=== PATIENT | male | born 1950 | race Caucasian/White ===

== ENCOUNTER 2017-03-06 19:21 | Inpatient (IN) | payer MEDICARE, BC, OTHER ==
[~2017-03-06] VITALS: Ht 172.7 cm; Wt 91.0 kg
[2017-03-06 19:25] VITALS: BP 126/80; PULSE 124; RESP 30; TEMP 99.1; O2SAT 92
--- NOTE | 2017-03-06 19:45 | PD ---
Physical Exam Date Seen by Provider: Mar 06, 2017 Time Seen by Provider: 19:42 Data Data Last Documented VS Vital Signs Date Time Temp Pulse Resp B/P Pulse Ox O2 Delivery O2 Flow Rate FiO2 03/06/17 19:25 99.1 124 30 126/[address] [facility] Supervised Visit with LOPEZ: No Narrative Course 67 YO M with complaint of 9/10 right sided flank pain and SOB. Pain onset sharply during coughing fit overnight. Cold symptoms x 2 weeks. Vitals reviewed. Patient seen in triage, awaiting priority bed placement. Sylvia Valenzuela Mar 06, 2017 19:45
[2017-03-06 20:00] VITALS: BP 149/90; PULSE 108; RESP 20; O2SAT 90
[2017-03-06] MEDS ORDERED: SODIUM CHLORID 0.9% 500 ML INJ 500 ML IV ONE ×2 (20:00→22:30)
[2017-03-06] MEDS ORDERED: cefTRIAXone INJ 1,000 MG in SODIUM CHLORIDE 0.9% INJ 100 ML IV ONE (20:00)
[2017-03-06] MEDS ORDERED: SODIUM CHLORIDE 0.9% FLUSH 10 ML FLUSH IVF PRN (20:00)
[2017-03-06] MEDS ORDERED: AZITHROMYCIN INJ 500 MG in SODIUM CHLOR 0.9% 250 ML INJ 250 ML IV ONE (20:00)
[2017-03-06] MEDS ORDERED: KETOROLAC TROMETHAMINE 30 MG/ML (IVP) VIAL IV PUSH ONE (20:15)
[2017-03-06 20:21] LABS: BASOPHIL # 0.1 TH/MM3 (0-0.2); BASOPHIL % 0.3 % (0.0-2.0); EOSINOPHIL # 0.1 TH/MM3 (0-0.4); EOSINOPHIL % 0.6 % (0.0-4.0); HEMATOCRIT 50.5 % (39.0-51.0); HEMO FLAGS DIFF FINAL; LYMPH % 9.8 % (9.0-44.0); LYMPHOCYTE # 1.9 TH/MM3 (1.0-4.8); MEAN CELL VOLUME 86.5 FL (80.0-100.0); MEAN CORPUSCULAR HEMOGLOBIN 29.7 PG (27.0-34.0); MEAN CORPUSCULAR HGB CONC 34.4 % (32.0-36.0); MONO % 7.2 % (0.0-8.0); NEUT % 82.1 % (16.0-70.0); PLATELET COUNT 254 TH/MM3 (150-450); RED BLOOD COUNT 5.84 MIL/MM3 (4.50-5.90); WHITE BLOOD COUNT 19.5 TH/MM3 (4.0-11.0)
[2017-03-06 20:23] VITALS: RESP 18; O2SAT 97
--- NOTE | 2017-03-06 20:28 | PD ---
HPI Chief Complaint: Respiratory Symptoms Time Seen by Provider: 19:51 Travel History International Travel<30 days: No Contact w/Intl Traveler<30days: No Traveled to known affect area: No History of Present Illness HPI The patient is a 67 year old male who presents to the [facility] emergency department with a history of cough, congestion that he reports began approximately 2 weeks ago. He reports that 2 nights ago he developed increased cough and congestion and while vigorously coughing he felt a pop in the right side of his back. He reports that since then he's had sharp pains with any movement, coughing, or taking a deep breath. The patient reports having diaphoresis, clamminess associated with this. He reports that his cough is not productive. He denies having any history of respiratory disease. He reports that he did smoke previously, however he quit in his 40s. The patient denies having any chest pain. He reports that he does have shortness of breath with exertion. He denies having any known fevers. On review of systems, the patient denies any neck pain, chest pain, abdominal pain, vomiting, diarrhea, urinary symptoms, or neurologic symptoms. [facility] Past Medical History Narrative Medical The patient's past medical history is significant for hypertension, hyperlipidemia, post traumatic stress disorder, diabetes mellitus that he reports is dietary controlled. High Cholesterol: Yes Diabetes: Yes Patient Takes Glucophage: No Diminished Hearing: No GERD: Yes Hypertension: Yes Medical other: Yes (PTSD) Tetanus Vaccination: Unknown Influenza Vaccination: No Past Surgical History Narrative Surgical The patient's past surgical history is significant for a bilateral inguinal hernia repair. Other Surgery: Yes (BILATERAL HERNIA) Social History Alcohol Use: Yes (OCCASSIONALLY) Tobacco Use: No Substance Use: No Allergies-Medications (Allergen,Severity, Reaction): Coded Allergies: Oxycodone (Verified Allergy, Severe, 03/06/17) Uncoded Allergies: MOTH BALLS (Adverse Reaction, Severe, Rash, 03/06/17) Reported Meds & Prescriptions Reported Meds & Active Scripts Active Reported Vitamin D (Cholecalciferol) 1,000 Unit Tab 1,000 Units PO DAILY Aspir-81 (Aspirin) 81 Mg Tabdr Tamsulosin (Tamsulosin HCl) 0.4 Mg Cap 0.4 Mg PO HS Simvastatin 20 Mg Tab 20 Mg PO HS Lisinopril 40 Mg Tab 40 Mg PO DAILY Omeprazole 20 Mg Tab 20 Mg PO DAILY Sertraline (Sertraline HCl) 50 Mg Tab 50 Mg PO DAILY Review of Systems Except as stated in HPI: all other systems reviewed are Neg General / Constitutional: No: Fever Eyes: No: Visual changes HENT: No: Headaches Cardiovascular: Positive: Chest Pain or Discomfort (right posterior upper thoracic) Respiratory: Positive: Cough, Shortness of Breath Gastrointestinal: No: Abdominal Pain Genitourinary: No: Dysuria Musculoskeletal: No: Pain Skin: No Rash Neurologic: No: Weakness Psychiatric: No: Depression Endocrine: No: Polydipsia Hematologic/Lymphatic: No: Easy Bruising Physical Exam Narrative General: The patient is a well-developed well-nourished male, uncomfortable appearing on arrival, diaphoretic Head and Neck exam: Head is normocephalic atraumatic. Eyes: EOMI, pupils are equal round and reactive to light. Nose: Midline septum with pink mucous membranes Mouth: Dentition unremarkable. Moist mucus membranes. Posterior oropharynx is not erythematous. No tonsillar hypertrophy. Uvula midline. Airway patent. Neck: No palpable lymphadenopathy. No nuchal rigidity. No thyromegaly. Cardiovascular: Sinus tachycardia in the 1 teens without murmurs, gallops, or rubs. No pulse deficit to the extremities and simultaneous auscultation and palpation of his radial artery. Lungs: Decreased breath sounds in the right side, right lung base, no wheezes, no rhonchi. No crackles audible. The patient has exquisite tenderness on palpation along the right posterior thorax, however there is no ecchymosis or erythema. No flail segment. Step-off or crepitus. Abdomen: Soft, without tenderness to palpation in all 4 quadrants of the abdomen. No guarding, rebound, or rigidity. Normal bowel sounds are audible. No tenderness on palpation of McBurney's point. Extremities: No clubbing, cyanosis, or edema. 2+ pulses in all 4 extremities. No calf tenderness on palpation. Back: No spinous process tenderness to palpation. The patient has right-sided CVA tenderness on palpation. Neurologic Exam: Grossly nonfocal. Skin Exam: No rash noted. Intact skin that is warm and diaphoretic. Data Data Last Documented VS Vital Signs Date Time Temp Pulse Resp B/P Pulse Ox O2 Delivery O2 Flow Rate FiO2 7/10/22 20:23 18 97 Nasal Cannula 2 03/06/17 20:00 108 149/90 03/06/17 19:25 99.1 Orders Complete Blood Count With Diff (03/06/17 19:51) Comprehensive Metabolic Panel (03/06/17 19:51) B-Type Natriuretic Peptide (03/06/17 19:51) Act Partial Throm Time (Ptt) (03/06/17:51) Prothrombin Time / Inr (Pt) (03/06/17 19:51) Magnesium (Mg) (03/06/17 19:51) Ckmb (Isoenzyme) Profile (03/06/17 19:51) Troponin I (03/06/17:51) Urinalysis - C+S If Indicated (03/06/17:51) Blood Culture (03/06/17 19:51) Iv Access Insert/Monitor (03/06/17:51) Electrocardiogram (03/06/17:51) Ecg Monitoring (03/06/17:51) Oximetry (03/06/17:51) Oxygen Administration (03/06/17 19:51) Chest, Single Ap (03/06/17 19:51) Sodium Chloride 0.9% Flush (Ns Flush) (03/06/17 20:00) Lactic Acid Sepsis Protocol (03/06/17 19:51) Ct Pulmonary Angiogram (03/06/17 20:00) Sodium Chlorid 0.9% 500 Ml Inj (Ns 500 M (03/06/17 20:00) Ceftriaxone Inj (Rocephin Inj) (03/06/17 20:00) Azithromycin Inj (Zithromax Inj) (03/06/17 20:00) Ketorolac Inj (Toradol Inj) (03/06/17 20:15) CKMB (03/06/17 20:03) CKMB% (03/06/17 20:03) Iodixanol 320 Inj (Rad Ct) (Visipaque 32 (03/06/17 22:20) Sodium Chlor 0.9% 1000 Ml Inj (Ns 1000 M (03/06/17 22:30) Sodium Chlor 0.9% 250 Ml Inj (Ns 250 Ml (03/06/17 22:30) Sodium Chlorid 0.9% 500 Ml Inj (Ns 500 M (03/06/17 22:30) Admit Order (Ed Use Only) (03/06/17 22:45) Labs Laboratory Tests Test 03/06/17 03/06/17 20:03 22:39 Prothrombin Time 10.9 SEC Prothromb Time International 1.0 RATIO Ratio Activated Partial 30.1 SEC Thromboplast Time Sodium Level 136 MEQ/L Potassium Level 4.2 MEQ/L Chloride Level 101 MEQ/L Carbon Dioxide Level 26.2 MEQ/L Anion Gap 9 MEQ/L Blood Urea Nitrogen 17 MG/DL Creatinine 1.60 MG/DL Estimat Glomerular Filtration 43 ML/MIN Rate Random Glucose 134 MG/DL Lactic Acid Level 2.3 mmol/L 1.6 mmol/L Calcium Level 9.3 MG/DL Magnesium Level 1.9 MG/DL Total Bilirubin 0.8 MG/DL Aspartate Amino Transf 20 U/L (AST/SGOT) Alanine Aminotransferase 33 U/L (ALT/SGPT) Alkaline Phosphatase 140 U/L Total Creatine Kinase 159 U/L Creatine Kinase MB LESS THAN 0.5 NG/ML Troponin I LESS THAN 0.02 NG/ML B-Type Natriuretic Peptide 6 PG/ML Total Protein 8.8 GM/DL Albumin 4.3 GM/DL White Blood Count 19.5 TH/MM3 Red Blood Count 5.84 MIL/MM3 Hemoglobin 17.4 GM/DL Hematocrit 50.5 % Mean Corpuscular Volume 86.5 FL Mean Corpuscular Hemoglobin 29.7 PG Mean Corpuscular Hemoglobin 34.4 % Concent Red Cell Distribution Width 14.0 % Platelet Count 254 TH/MM3 Mean Platelet Volume 8.4 FL Neutrophils (%) (Auto) 82.1 % Lymphocytes (%) (Auto) 9.8 % Monocytes (%) (Auto) 7.2 % Eosinophils (%) (Auto) 0.6 % Basophils (%) (Auto) 0.3 % Neutrophils # (Auto) 16.0 TH/MM3 Lymphocytes # (Auto) 1.9 TH/MM3 Monocytes # (Auto) 1.4 TH/MM3 Eosinophils # (Auto) 0.1 TH/MM3 Basophils # (Auto) 0.1 TH/MM3 CBC Comment DIFF FINAL Differential Comment MDM Medical Decision Making Medical Screen Exam Complete: Yes Emergency Medical Condition: Yes Medical Record Reviewed: Yes Interpretation(s) Last Impressions CT Angiography 03/06/171999 Signed Impressions: Service Date/Time: Monday, March 06, 2017 22:15 - CONCLUSION: 1. Pulmonary embolus seen in the pulmonary artery supplying the posterior medial right lower lobe. 2. Mild suspected atelectasis or consolidation at the bases. Marcel Morfin MD Chest X-Ray 03/06/171950 Signed Impressions: Service Date/Time: Monday, March 06, 2017 20:31 - CONCLUSION: Mild right base atelectasis or consolidation. Marcel Morfin MD Differential Diagnosis Pneumonia, versus pulmonary embolism, versus pneumothorax, versus rib fracture, versus pleural effusion Narrative Course During the course of the patients emergency department visit, the patients history, examination, and differential diagnosis were reviewed with the patient. The patient had IV access obtained and blood work sent for analysis. The patient was placed on a surveillance monitor with oximetry and blood pressure monitoring. An ECG was done on arrival. The patient's ECG reveals a sinus tachycardia rate of 111, QRS 81 ms, QTC 374 ms, no acute ST segment elevation or depression. The patient was initially provided normal saline a 500 mL bolus 1, Rocephin 1 g IV, Zithromax 500 IV, Toradol 15 mg IV for pain. The patients laboratory studies were reviewed and remarkable for a white count of 19.5, hemoglobin 17.4, platelets 254 with 82.1 neutrophils. Sedimentation rate is 47, CMP is remarkable for creatinine 1.60, glucose 134, alkaline phosphatase 140, CPK 159, troponin I less than 0.02, PT 10.9, PTT 30.1, urinalysis shows 30 protein otherwise moderate leukocyte esterase, 9 wbc's, rare bacteria, culture indicated. Radiology studies were reviewed and remarkable for a chest x-ray that showed a mild right base atelectasis versus consolidation and given the patient's history antibiotic was started. CTA to rule out PE reveals a pulmonary embolism seen in the pulmonary artery supplying the posterior medial right lower lobe, mild suspected atelectasis or consolidation at the bases. The patient was started on heparin per PE protocol. The patients results were discussed with the patient, including the plan of care. I explained that further testing and/ or monitoring is indicated based on the patients history, examination, and/ or laboratory findings. Therefore, I recommended admission for additional evaluation. The patient expressed understanding and was agreeable with this plan. The patient was admitted to the hospital in stable condition and [facility] Sepsis Criteria SIRS Criteria (2 or more): Heart rate over 90, RR > 20 or PaCO2 < 32, WBC > 62925, < 4000 or > 10% bands Sepsis Criteria (SIRS+source): Infect source susp/known Severe Sepsis (+one): Lactate >2 Criteria Outcome: Meets SIRS criteria, Meets sepsis criteria, Meets severe sepsis criteria Physician Communication Physician Communication The patient's case was discussed with Marcel Sol the physician executive personal assistant who did agree to [facility] Diagnosis Primary Impression: Pulmonary embolism Qualified Code: I26.99 - Other acute pulmonary embolism without acute cor pulmonale Additional Impression: Pneumonia Qualified Code: J18.9 - Pneumonia of both lower lobes due to infectious organism Admitting Information Admitting Physician Requests: Admit Bouchra Ocasio MD Mar 06, 2017 20:28
[2017-03-06 20:35] LABS: ANION GAP 9 MEQ/L (5-15); AST (GOT) 20 U/L (15-37); BICARBONATE 26.2 MEQ/L (21.0-32.0); BLOOD UREA NITROGEN 17 MG/DL (7-18); CHLORIDE 101 MEQ/L (98-107); GLOMERULAR FILTRATION RATE 43 ML/MIN (>89); MAGNESIUM 1.9 MG/DL (1.5-2.5); POTASSIUM 4.2 MEQ/L (3.5-5.1); SODIUM (NA) 136 MEQ/L (136-145)
[2017-03-06 20:36] LABS: ALT (GPT) 33 U/L (12-78)
[2017-03-06 20:40] LABS: ALKALINE PHOSPHATASE 140 U/L (45-117); APTT (PATIENT) 30.1 SEC (24.3-30.1); CREATINE KINASE 159 U/L (39-308); PROTHROMBIN TIME - PATIENT 10.9 SEC (9.8-11.6); TOTAL BILIRUBIN ADULT 0.8 MG/DL (0.2-1.0)
[2017-03-06] MEDS ORDERED: TAMS0.4C4 PO (20:48)
[2017-03-06] MEDS ORDERED: VITA100064 PO (20:48)
[2017-03-06] MEDS ORDERED: ASPI81TA81 (20:48)
[2017-03-06] MEDS ORDERED: SIMV20TA PO (20:48)
[2017-03-06] MEDS ORDERED: OMEP20TA PO (20:48)
[2017-03-06] MEDS ORDERED: SERT-132 PO (20:48)
[2017-03-06] MEDS ORDERED: LISI40TA PO (20:48)
[2017-03-06 20:52] LABS: CKMB LESS THAN 0.5 NG/ML (0.5-3.6)
--- NOTE | 2017-03-06 21:22 | RADRPT ---
EXAM DATE/TIME: 03/06/2017 20:31 [facility] COMPARISON: No previous studies available for comparison. INDICATIONS : Short of Breath MEDICAL HISTORY : None. SURGICAL HISTORY : None. ENCOUNTER: Initial ACUITY: 2 days PAIN SCORE: 0/10 LOCATION: Bilateral chest FINDINGS: The heart size is normal. There is increased density at the right base. The left lung is clear. A sig nificant effusion is not seen. CONCLUSION: Mild right base atelectasis or consolidation. Marcel Morfin MD on March 06, 2017 at 21:19 Board Certified Radiologist. This report was verified electronically.
[2017-03-06 22:14] LABS: LACTIC ACID GHOST NOT REPORTABLE
[2017-03-06] MEDS ORDERED: IODIXANOL 320 MG/ML 10 ML VIAL (for Rad CT) IV ONE (22:20)
[2017-03-06] MEDS ORDERED: SODIUM CHLOR 0.9% 1000 ML INJ 1,000 ML IV ONE (22:30)
[2017-03-06] MEDS ORDERED: SODIUM CHLOR 0.9% 250 ML INJ 250 ML IV ONE (22:30)
--- NOTE | 2017-03-06 22:31 | RADRPT ---
EXAM DATE/TIME: 03/06/2017 22:15 [facility] COMPARISON: No previous studies available for comparison. INDICATIONS : Right sided chest pain with shortness of breath. IV CONTRAST: 50 cc Visipaque (iodixanol) IV RADIATION DOSE: 15.48 CTDIvol (mGy) MEDICAL HISTORY : Hypertension. Diabetes mellitus type 2. SURGICAL HISTORY : None. ENCOUNTER: Initial ACUITY: 2 days PAIN SCALE: 4/10 LOCATION: Right chest TECHNIQUE: Volumetric scanning of the chest was performed using a pulmonary embolism protocol MIP images were re constructed. Using automated exposure control and adjustment of the mA and/or kV according to patien t size, radiation dose was kept as low as reasonably achievable to obtain optimal diagnostic quality images. DICOM format image data is available electronically for review and comparison. FINDINGS: PULMONARY ARTERIES: There is pulmonary embolus seen at the posterior medial right lower lobe. LUNGS: There is mild increased density in the posterior lung bases bilaterally. PLEURAE: There is no pleural thickening or pleural effusion. MEDIASTINUM: There is good visualization of the great vessels of the middle mediastinum. No evidence of mediastin al or hilar adenopathy/mass. MUSCULOSKELETAL: Within normal limits for patient age. MISCELLANEOUS: The visualized upper abdominal organs demonstrate no acute abnormality. CONCLUSION: 1. Pulmonary embolus seen in the pulmonary artery supplying the posterior medial right lower lobe. 2. Mild suspected atelectasis or consolidation at the bases. Marcel Morfin MD on March 06, 2017 at 22:26 Board Certified Radiologist. This report was verified electronically.
[2017-03-06] MEDS ORDERED: HEPARIN SODIUM - IV 10,000 UNITS/10 ML VIAL IV ONE (22:45)
[2017-03-06] MEDS ORDERED: HEPARIN-D5W INJ 250 ML IV SCH (22:45)
[2017-03-06] MEDS ORDERED: RESP: ALBUTEROL 2.5 MG/IPRATROPIUM 0.5 MG NEB (PRN) INH (23:00)
[2017-03-06] MEDS ORDERED: ACETAMINOPHEN 325 MG TAB PO PRN (23:00)
[2017-03-06] MEDS ORDERED: ONDANSETRON HCL 4 MG/2 ML VIAL IV PRN (23:00)
[2017-03-06] MEDS ORDERED: guaiFENesin/DEXTROMETHORPHAN 200 MG/20 MG/10 ML CUP PO PRN (23:00)
[2017-03-06 23:08] LABS: HEMATOCRIT 40.1 % (39.0-51.0); MEAN CELL VOLUME 87.1 FL (80.0-100.0); MEAN CORPUSCULAR HEMOGLOBIN 29.1 PG (27.0-34.0); MEAN CORPUSCULAR HGB CONC 33.4 % (32.0-36.0); PLATELET COUNT 172 TH/MM3 (150-450); RED CELL DISTRIBUTION WIDTH 13.9 % (11.6-17.2); REVIEW FLAG FINAL; WHITE BLOOD COUNT 17.1 TH/MM3 (4.0-11.0)
[2017-03-06 23:26] LABS: PROTHROMBIN TIME - PATIENT 11.5 SEC (9.8-11.6)
[2017-03-06 23:28] VITALS: O2SAT 96
[2017-03-06 23:30] VITALS: BP 125/70; PULSE 93; RESP 18; O2SAT 98
[2017-03-07] VITALS (27 sets, daily range): BP systolic 127–147; BP diastolic 79–95; PULSE 83–118; RESP 16–24; TEMP 98.2–98.6; O2SAT 93–98
[2017-03-07] MEDS: SODIUM CHLOR 0.9% 1000 ML INJ 1,000 ML IV SCH ×3 (00:20→15:38)
[2017-03-07] MEDS ORDERED: MORPHINE SULFATE 4 MG/ML INJ IV PRN (01:30)
[2017-03-07] MEDS: MORPHINE SULFATE 4 MG/ML INJ IV PRN ×6 (01:44→23:41)
[2017-03-07 06:27] LABS: APTT (PATIENT) 135.4 SEC (24.3-30.1)
[2017-03-07 07:24] LABS: BICARBONATE 23.2 MEQ/L (21.0-32.0)
--- NOTE | 2017-03-07 08:56 | HHI.HP ---
[facility] Rod Fields MD Admission Diagnosis Pulmonary embolism, pneumonia Diagnoses: Travel History International Travel<30 Days: No Contact w/Intl Traveler <30 Da: No Traveled to Known Affected Are: No History of Present Illness This is a very pleasant 67-year-old male patient of Dr. Fields. The patient has 2 weeks of recurrent cough. He has chronic problem with excessive sweating. For the last 2-3 days been complaining of a pleuritic right posterior chest pain with worsening shortness of breath. No leg pain. He came to the emergency department at [facility] last night around 7:30. His chest x-ray showed right base consolidation and CT of the chest showed right lower pulmonary embolism with consolidation. There is alert and oriented. He feels a little bit better. Denies any recent surgery or travel. No strong family history of thromboembolism. No fever however has been very sweaty and clammy at times. The pain is in the right posterior chest worse on deep inspiration and it appears that it had started suddenly about 2 days ago when he felt something pop in his right posterior chest. He is mildly tachypneic. He is also mildly tachycardic . He was seen this morning by the undersigned in room 246 and the presence of his nurse. Review of Systems Other 10 systems reviewed and otherwise negative Past Family Social History Past Medical History Hypertension Diet-controlled diabetes mellitus PTSD Reflux disease Enlarged prostate Hyperlipidemia Past Surgical History Bilateral inguinal hernia repair Spinal surgery in 1988 Reported Medications Reported Meds & Active Scripts Active Reported Vitamin D (Cholecalciferol) 1,000 Unit Tab 1,000 Units PO DAILY Aspir-81 (Aspirin) 81 Mg Tabdr Tamsulosin (Tamsulosin HCl) 0.4 Mg Cap 0.4 Mg PO HS Simvastatin 20 Mg Tab 20 Mg PO HS Lisinopril 40 Mg Tab 40 Mg PO DAILY Omeprazole 20 Mg Tab 20 Mg PO DAILY Sertraline (Sertraline HCl) 50 Mg Tab 50 Mg PO DAILY Allergies: Coded Allergies: Oxycodone (Verified Allergy, Severe, 03/06/17) Uncoded Allergies: MOTH BALLS (Adverse Reaction, Severe, Rash, 03/06/17) Family History There are several family members with "blood clot". He is not sure about the locations of those blood clots. His father in his 80s and had some form of angioplasty in his neck also have hypertension. His brother who is 3 years ending in him is alive and apparently had some congenital heart disease. Social History Quit smoking over 20 years, occasional taking total of about 3 alcoholic drinks a week Physical Exam Vital Signs Vital Signs Date Time Temp Pulse Resp B/P Pulse Ox O2 Delivery O2 Flow Rate FiO2 03/07/17 08:22 16 03/07/17 06:53 88 03/07/17 05:16 92 03/07/17 04:07 88 03/07/17 03:20 98.5 83 16 127/79 97 03/07/17 03:10 89 03/07/17 02:15 90 03/07/17 01:00 94 03/07/17 00:30 94 03/07/17 00:30 98.3 95 18 138/86 98 03/06/17 23:30 93 18 125/70 98 Nasal Cannula 2 03/06/17 23:28 96 Nasal Cannula 3.00 03/06/17 20:23 18 97 Nasal Cannula 2 03/06/17 20:23 97 Nasal Cannula 2 03/06/17 20:00 108 20 149/90 90 Nasal Cannula 2 03/06/17 19:25 99.1 124 30 126/80 92 Room Air Physical Exam GENERAL: This is a well-nourished, well-developed patient, in no apparent distress. SKIN: No rashes, ecchymoses or lesions. Cool and moist, he had a sweaty back HEAD: Atraumatic. Normocephalic. No temporal or scalp tenderness. EYES: Pupils equal round and reactive. Extraocular motions intact. No scleral icterus. No injection or drainage. ENT: Nose without bleeding, purulent drainage or septal hematoma. Throat without erythema, tonsillar hypertrophy or exudate. Uvula midline. Airway patent. NECK: Trachea midline. No JVD or lymphadenopathy. Supple, nontender, no meningeal signs. CARDIOVASCULAR: Regular rate and rhythm without murmurs, gallops, or rubs. RESPIRATORY: Clear to auscultation. Breath sounds equal bilaterally. No wheezes , rales, or rhonchi. GASTROINTESTINAL: Abdomen soft, non-tender, nondistended. No hepato-splenomegaly , or palpable masses. No guarding. MUSCULOSKELETAL: Extremities without clubbing, cyanosis, or edema. No joint tenderness, effusion, or edema noted. No calf tenderness. Negative Homans sign bilaterally. NEUROLOGICAL: Awake and alert. Cranial nerves II through XII intact. Normal speech. Laboratory Laboratory Tests Test 03/06/17 03/06/17 03/06/17 03/07/17 20:03 22:39 22:59 04:48 White Blood Count 19.5 17.1 Red Blood Count 5.84 4.60 Hemoglobin 17.4 13.4 Hematocrit 50.5 40.1 Mean Corpuscular Volume 86.5 87.1 Mean Corpuscular Hemoglobin 29.7 29.1 Mean Corpuscular Hemoglobin 34.4 33.4 Concent Red Cell Distribution Width 14.0 13.9 Platelet Count 254 172 Mean Platelet Volume 8.4 8.2 Neutrophils (%) (Auto) 82.1 Lymphocytes (%) (Auto) 9.8 Monocytes (%) (Auto) 7.2 Eosinophils (%) (Auto) 0.6 Basophils (%) (Auto) 0.3 Neutrophils # (Auto) 16.0 Lymphocytes # (Auto) 1.9 Monocytes # (Auto) 1.4 Eosinophils # (Auto) 0.1 Basophils # (Auto) 0.1 CBC Comment DIFF FINAL Differential Comment Prothrombin Time 10.9 11.5 Prothromb Time International 1.0 1.0 Ratio Activated Partial 30.1 30.0 135.4 Thromboplast Time Sodium Level 136 140 Potassium Level 4.2 4.0 Chloride Level 101 108 Carbon Dioxide Level 26.2 23.2 Anion Gap 9 9 Blood Urea Nitrogen 17 20 Creatinine 1.60 1.22 Estimat Glomerular Filtration 43 59 Rate Random Glucose 134 102 Lactic Acid Level 2.3 1.6 Calcium Level 9.3 7.7 Magnesium Level 1.9 Total Bilirubin 0.8 Aspartate Amino Transf 20 (AST/SGOT) Alanine Aminotransferase 33 (ALT/SGPT) Alkaline Phosphatase 140 Total Creatine Kinase 159 Creatine Kinase MB LESS THAN 0.5 Troponin I LESS THAN 0.02 B-Type Natriuretic Peptide 6 Total Protein 8.8 Albumin 4.3 Date/Time Procedure Status Source Growth 03/06/17 20:05 Aerobic Blood Culture Received Blood Peripheral Pending 03/06/17 20:05 Anaerobic Blood Culture Received Blood Peripheral Pending Result Diagram: 03/06/17 2259 03/07/17 0448 Imaging Last [address] Angiography 03/06/171999 Signed Impressions: Service Date/Time: Monday, March 06, 2017 22:15 - CONCLUSION: 1. Pulmonary embolus seen in the pulmonary artery supplying the posterior medial right lower lobe. 2. Mild suspected atelectasis or consolidation at the bases. Marcel Morfin MD Chest X-Ray 03/06/171950 Signed Impressions: Service Date/Time: Monday, March 06, 2017 20:31 - CONCLUSION: Mild right base atelectasis or consolidation. Marcel Morfin MD Assessment and Plan Assessment and Plan Assessment Acute pulmonary embolism, this appears to be unprovoked Right base consolidation, cannot rule out pneumonia Leukocytosis Diaphoresis Slightly elevated protein with normal albumin Plan The patient has been admitted to telemetry. He was started on heparin drip This is switched now to Xarelto The patient was informed that he will need at least 6 months of anticoagulation At this is an unprovoked pulmonary embolism, hematology consultation is requested Also has his protein level is high a serum protein electrophoresis is also requested and a manual white count differential Supplemental oxygen is supplied He is to be ambulated today Keep on telemetry DVT prophylaxis is covered with his and coagulation as above Electrocardiogram is also ordered Discussed with patient Discussed with nurse 40 minutes spent Discussed With: Nurse Greg Crooks MD Mar 07, 2017 08:56
[2017-03-07] MEDS ORDERED: FAMOTIDINE 20 MG TAB PO SCH (09:00)
[2017-03-07 09:38] LABS: APTT (PATIENT) 43.2 SEC (24.3-30.1)
[2017-03-07] MEDS: CHOLECALCIFEROL (VIT D3) 1000 UNIT TAB PO SCH (09:44)
[2017-03-07] MEDS: SERTRALINE HCL 50 MG TAB PO SCH (09:44)
[2017-03-07] MEDS: LISINOPRIL 20 MG TAB PO SCH (09:44)
[2017-03-07] MEDS ORDERED: TAMSULOSIN HCL 0.4 MG CAP PO ONE (10:30)
[2017-03-07] MEDS: RIVAROXABAN 15 MG TAB PO SCH ×2 (11:10→20:09)
--- NOTE | 2017-03-07 13:27 | RADRPT ---
EXAM DATE/TIME: 03/07/2017 12:18 [facility] COMPARISON: No previous studies available for comparison. INDICATIONS : Pulmonary embolism. MEDICAL HISTORY : Hypercholesterolemia. Hypertension. Gastroesophageal reflux disease. Syncope. Spinal injury. Arthriti s. Diabetes. PTSD. Anticoagulant therapy, Xarelto. SURGICAL HISTORY : Bilateral hernia. ENCOUNTER: Initial ACUITY: 2 day PAIN SCORE: 0/10 LOCATION: Bilateral leg. TECHNIQUE: Venous ultrasound of the left and right leg was performed from the inguinal ligament to the proximal calf. Real-time, color Doppler and spectral tracing, compression and augmentation techniques were us ed. FINDINGS: RIGHT LEG: There is normal compressibility of the deep venous system from the inguinal region to the proximal ca lf. No echogenic clot is seen in the lumen of the common femoral, femoral, popliteal, and posterior tibial veins. There is a normal response of the venous system to proximal and distal augmentation an d respiration. LEFT LEG: There is normal compressibility of the deep venous system from the inguinal region to the proximal ca lf. No echogenic clot is seen in the lumen of the common femoral, femoral, popliteal, and posterior tibial veins. There is a normal response of the venous system to proximal and distal augmentation an d respiration. CONCLUSION: Negative for deep venous thrombosis. Dagoberto Chen MD FACR on March 07, 2017 at 13:24 Board Certified Radiologist. This report was verified electronically.
--- NOTE | 2017-03-07 14:17 | EKG ---
Date Performed: 03/06/2017 Time Performed: 19:52:22 PTAGE: 67 years EKG: SINUS TACHYCARDIA POSSIBLE LEFT ATRIAL ENLARGEMENT ABNORMAL RHYTHM ECG NO PREVIOUS TRACING DOCTOR: Navarro Hardin Interpretating Date/Time 03/07/2017 14:14:36
[2017-03-07 14:47] LABS: TOTAL PROTEIN SPE 6.4 GM/DL (6.0-7.6)
[2017-03-07 15:34] LABS: APTT (PATIENT) 43.3 SEC (24.3-30.1)
[2017-03-07 16:46] LABS: BACTERIA, URINE RARE /hpf; BLOOD, URINE NEG (NEG); COMMENT (UR) CULTURE INDICATED; CULTURE IF INDICATED CULTURE INDICATED; GLUCOSE,URINE NEG (NEG); KETONE, URINE NEG (NEG); MUCUS URINE FEW /lpf (OCC); NITRITE,URINE NEG (NEG); SQUAMOUS EPITHELIAL CELL URINE 6 /hpf (0-5); URINE COLOR YELLOW (YELLW/STRAW)
[2017-03-07] MEDS: cefTRIAXone INJ 2,000 MG in SODIUM CHLORIDE 0.9% INJ 100 ML IV SCH (20:09)
[2017-03-07] MEDS: PRAVASTATIN SOD 40 MG TAB PO SCH (20:09)
[2017-03-07] MEDS: TAMSULOSIN HCL 0.4 MG CAP PO SCH (20:09)
[2017-03-07] MEDS: AZITHROMYCIN INJ 500 MG in SODIUM CHLOR 0.9% 250 ML INJ 250 ML IV SCH (21:00)
[2017-03-07] MEDS ORDERED: TAMSULOSIN HCL 0.4 MG CAP PO SCH (21:00)
[2017-03-08] VITALS (27 sets, daily range): BP systolic 123–153; BP diastolic 70–89; PULSE 70–118; RESP 18–20; TEMP 98.3–99.4; O2SAT 93–97
[2017-03-08] MEDS: MORPHINE SULFATE 4 MG/ML INJ IV PRN ×2 (03:28→22:38)
[2017-03-08] MEDS: SODIUM CHLOR 0.9% 1000 ML INJ 1,000 ML IV SCH (04:58)
[2017-03-08] MEDS: LISINOPRIL 20 MG TAB PO SCH (09:27)
[2017-03-08] MEDS: TAMSULOSIN HCL 0.4 MG CAP PO SCH ×2 (09:27→20:00)
[2017-03-08] MEDS: CHOLECALCIFEROL (VIT D3) 1000 UNIT TAB PO SCH (09:28)
[2017-03-08] MEDS: PANTOPRAZOLE SOD 20 MG DELAYED RELEASE TAB PO SCH (09:28)
[2017-03-08] MEDS: RIVAROXABAN 15 MG TAB PO SCH ×2 (09:28→19:59)
[2017-03-08] MEDS: SERTRALINE HCL 50 MG TAB PO SCH (09:28)
--- NOTE | 2017-03-08 09:50 | PD.ONC.PN ---
Subjective Subjective Remarks Afebrile overnight. Patient resting in bed in nad. Tolerating xarelto. No bleeding. CP improved. Objective Data Date Time Temp Pulse Resp B/P Pulse Ox O2 Delivery O2 Flow Rate FiO2 03/08/17 06:00 95 03/08/17 05:00 92 03/08/17 04:00 98 03/08/17 04:00 98.6 98 18 142/81 93 03/08/17 03:00 90 03/08/17 02:00 92 03/08/17 01:00 90 03/08/17 00:00 95 03/08/17 00:00 98.3 102 18 153/89 96 03/07/17 23:00 90 03/07/17 22:00 96 03/07/17 21:00 92 03/07/17 20:00 97 03/07/17 20:00 98.6 101 18 132/95 95 03/07/17 19:00 96 03/07/17 18:00 118 03/07/17 17:55 93 Nasal Cannula 2.00 03/07/17 17:00 92 03/07/17 16:00 98.3 110 24 147/86 93 03/07/17 16:00 88 03/07/17 15:52 16 03/07/17 15:00 92 03/07/17 14:00 98 03/07/17 13:36 96 Nasal Cannula 2.00 03/07/17 13:00 106 03/07/17 12:00 98.4 109 16 143/93 93 03/07/17 12:00 105 03/07/17 11:00 106 03/07/17 10:00 104 03/08/17 03/08/17 03/08/17 07:00 15:00 23:00 Intake Total 240 ml Balance 240 ml Result Diagram: 03/06/17 2259 03/07/17 0448 Laboratory Results Laboratory Tests Test 03/07/17 03/07/17 03/07/17 13:05 13:25 15:02 Erythrocyte Sedimentation Rate 47 mm/hr Total Protein 6.4 GM/DL Urine Color YELLOW Urine Turbidity CLEAR Urine pH 6.0 Urine Specific [place] 1.050 Urine Protein 30 mg/dL Urine Glucose (UA) NEG mg/dL Urine Ketones NEG mg/dL Urine Occult Blood NEG Urine Nitrite NEG Urine Bilirubin NEG Urine Urobilinogen LESS THAN 2.0 MG/DL Urine Leukocyte Esterase MOD Urine RBC 3 /hpf Urine WBC 9 /hpf Urine Squamous Epithelial 6 /hpf Cells Urine Bacteria RARE /hpf Urine Mucus FEW /lpf Microscopic Urinalysis Comment CULTURE INDICATED Activated Partial 43.3 SEC Thromboplast Time Culture Results Microbiology Date/Time Procedure Status Source Growth 03/06/17 19:58 Aerobic Blood Culture - Preliminary Resulted Blood Peripheral NO GROWTH IN 1 DAY 03/06/17 19:58 Anaerobic Blood Culture - Preliminary Resulted Blood Peripheral NO GROWTH IN 1 DAY 03/06/17 20:05 Aerobic Blood Culture - Preliminary Resulted Blood Peripheral NO GROWTH IN 1 DAY 03/06/17 20:05 Anaerobic Blood Culture - Preliminary Resulted Blood Peripheral NO GROWTH IN 1 DAY 03/07/17 13:25 Urine Culture Received Urine Random Urine Pending Administered Medications Medications (Trade) Dose Ordered Sig/Dinesh Route PRN Reason Start Time Stop Time Status Last Admin Dose Admin Ceftriaxone Sodium 2000 mg/ Sodium Chloride 100 ml @ 200 mls/hr Q24H IV 03/07/17 20:00 03/07/17 20:09 Azithromycin 500 mg/Sodium Chloride 250 ml @ 250 mls/hr HS IV 03/07/17 21:00 03/07/17 21:00 Sodium Chloride (NS 1000 ml Inj) 1,000 ml @ 100 mls/hr Q10H IV 03/06/17 22:58 03/07/17 15:38 Ondansetron HCl (Zofran Inj) 4 mg Q6H PRN IV NAUSEA 03/06/17 23:00 03/07/17 11:10 Morphine Sulfate (Morphine Inj) 4 mg Q3H PRN IV SEVERE PAIN/PAIN 6-10 03/07/17 01:30 03/08/17 03:28 Cholecalciferol (Vitamin D3) 1,000 units DAILY PO 03/07/17 09:00 03/08/17 09:28 Sertraline HCl (Zoloft) 50 mg DAILY PO 03/07/17 09:00 03/08/17 09:28 Lisinopril (Prinivil) 40 mg DAILY PO 03/07/17 09:15 03/08/17 09:27 Pantoprazole Sodium (Protonix) 20 mg DAILY PO 03/08/17 09:00 03/08/17 09:28 Pravastatin Sodium (Pravachol) 40 mg HS PO 03/07/17 21:00 7/3/17 20:09 Tamsulosin HCl (Flomax) 0.4 mg BID PO 03/07/17 21:00 03/08/17 09:27 Rivaroxaban (Xarelto) 15 mg BID PO 03/07/17 10:15 03/08/17 09:28 Objective Remarks GENERAL: Middle aged male, upright in bed in nad. SKIN: Warm and dry. HEAD: Normocephalic. EYES: No injection or drainage. NECK: Supple, trachea midline CARDIOVASCULAR: Regular rate and rhythm RESPIRATORY: Breath sounds equal bilaterally. No accessory muscle use. GASTROINTESTINAL: Abdomen soft, non-tender, nondistended. EXTREMITIES: No cyanosis NEUROLOGICAL: No obvious focal deficit. Awake, alert, and oriented x3. Assessment/Plan Problem List: (1) Pulmonary embolism Status: Acute Plan: 03/08: continue xarelto. fs faxed to new patient referrals for follow up once discharged --CTA showed PE --no DVT ++family history Attending Statement CP resolved No SOB Tolerating Xarelto well. Hypercoag panel as outpt. FU in the office. The exam, history, and the medical decision-making described in the above note were completed with the assistance of the mid-level provider. I reviewed and agree with the findings presented. I attest that I had a [id number] encounter with the patient on the same day, and personally performed and documented my assessment and findings in the medical record. Problem Qualifiers (1) Pulmonary embolism: Qualified Code: I26.99 - Other acute pulmonary embolism without acute cor pulmonale Zuleyka Hernandez Mar 08, 2017 09:50 Aime Godinez MD Mar 08, 2017 21:51
--- NOTE | 2017-03-08 11:20 | MB ---
cc: CARLOS SYKES M.D. DATE OF CONSULTATION 03/07/2017 REASON FOR CONSULTATION Consult requested by Dr. Crooks for evaluation of pulmonary embolism. HISTORY OF PRESENT ILLNESS Charly is a pleasant 67-year-old male. He has been complaining of cough and shortness of breath over the last week or so. He started having right-sided pleuritic chest pain and short of breath. He came to the emergency room last night. He underwent CT angiogram of the chest which showed right lower lobe pulmonary embolism with consolidation. The patient was started on heparin and now switched over to Xarelto. I have been asked to see the patient for further evaluation. The patient states that both his parents have history of thrombosis. They are both and he does not know much about whether they had any hypercoagulable state. REVIEW OF SYSTEMS He denies any nausea, vomiting, diarrhea. He states that his shortness of breath and chest pain are improving. He has no swelling around the ankles. He had a Doppler ultrasound of the legs which came back negative. The rest of the review of systems is negative. PAST MEDICAL HISTORY 1. Hypertension. 2. PTSD. 3. Diabetes mellitus. 4. Gastroesophageal reflux disease. 5. BPH. 6. Hypercholesterolemia. PAST SURGICAL HISTORY 1. Bilateral inguinal hernia repairs. 2. Spinal surgery. ALLERGIES OXYCODONE. MEDICATIONS 1. Vitamin D . 2. Aspirin. 3. Tamsulosin. 4. Simvastatin. 5. Lisinopril. 6. Omeprazole. 7. Zoloft. 8. Now he is on Xarelto. FAMILY HISTORY Both the parents have thrombosis. The patient as a brother and no sisters. SOCIAL HISTORY The patient used to smoke cigarettes, quit 20 years ago. Occasionally drinks alcohol. PHYSICAL EXAMINATION GENERAL: On physical examination, a well-developed, well-nourished white male in no apparent distress. VITAL SIGNS: Temperature 98.3, heart rate is a 92, blood pressure 147/86, O2 saturation 93%. HEENT: PERRLA, EOMI. Anicteric. No oral lesions noted. NECK: No lymphadenopathy noted. LUNGS: Clear. No wheezing, rhonchi or rales. HEART: Regular rate and rhythm. ABDOMEN: Soft, nontender. No hepatosplenomegaly. EXTREMITIES: No pedal edema. NEUROLOGY: Awake, alert, oriented x 3. No significant lesions noted. ASSESSMENT 1. Low burden pulmonary embolism currently on Xarelto. 2. Family history of thrombosis. PLAN I have discussed with the patient regarding the pulmonary embolism. He had a CT angiogram of the chest which showed low burden pulmonary embolism. He has no evidence of right heart strain. The Doppler ultrasound of both lower legs is negative for DVT. I agreed to continue to treat him with the Xarelto. Regarding hypercoagulable panel, I do not recommend to check it at this time since the management is not going to be changed. When the acute event resolves, then we will get the hypercoagulable panel. Once the patient is discharged to home, then please give an appointment to come see me in the office. Thank you for asking my opinion. MD RYAN Santos/SSB /10:06 PM /11:13 AM
--- NOTE | 2017-03-08 12:33 | HHI.PR ---
Subjective Subjective Remarks some cough with sputum, rhodes sputum right back pain no fever sats 89 to 90% on RA feels better on Xarelto now at bsd Review of Systems Constitutional Constitutional Remarks 12 point ros completed, negative except as noted above Vitals/Results Intake & Output 03/07/17 03/07/17 03/08/17 15:00 23:00 07:00 Intake Total 2050 ml 240 ml Output Total 300 ml Balance 1750 ml 240 ml Intake Oral 600 ml 240 ml IV Total 1450 ml Output Urine Total 300 ml # Voids 2 # Bowel Movements 0 Vital Signs Vital Signs Date Time Temp Pulse Resp B/P Pulse Ox O2 Delivery O2 Flow Rate FiO2 03/08/17 11:00 85 03/08/17 10:00 88 03/08/17 09:33 95 Nasal Cannula 2.00 03/08/17 09:00 98 03/08/17 08:00 108 03/08/17 08:00 99.4 105 18 123/70 95 03/08/17 06:00 95 03/08/17 05:00 92 03/08/17 04:00 98 03/08/17 04:00 98.6 98 18 142/81 93 03/08/17 03:00 90 03/08/17 02:00 92 03/08/17 01:00 90 03/08/17 00:00 95 03/08/17 00:00 98.3 102 18 153/89 96 03/07/17 23:00 90 03/07/17 22:00 96 03/07/17 21:00 92 03/07/17 20:00 97 03/07/17 20:00 98.6 101 18 132/95 95 03/07/17 19:00 96 03/07/17 18:00 118 03/07/17 17:55 93 Nasal Cannula 2.00 03/07/17 17:00 92 03/07/17 16:00 98.3 110 24 147/86 93 03/07/17 16:00 88 03/07/17 15:52 16 03/07/17 15:00 92 03/07/17 14:00 98 03/07/17 13:36 96 Nasal Cannula 2.00 03/07/17 13:00 106 CBC/BMP: 03/06/17 2259 03/07/17 0448 Lab Results Laboratory Tests Test 03/07/17 03/07/17 03/07/17 13:05 13:25 15:02 Erythrocyte Sedimentation Rate 47 mm/hr Total Protein 6.4 GM/DL Urine Color YELLOW Urine Turbidity CLEAR Urine pH 6.0 Urine Specific [place] 1.050 Urine Protein 30 mg/dL Urine Glucose (UA) NEG mg/dL Urine Ketones NEG mg/dL Urine Occult Blood NEG Urine Nitrite NEG Urine Bilirubin NEG Urine Urobilinogen LESS THAN 2.0 MG/DL Urine Leukocyte Esterase MOD Urine RBC 3 /hpf Urine WBC 9 /hpf Urine Squamous Epithelial 6 /hpf Cells Urine Bacteria RARE /hpf Urine Mucus FEW /lpf Microscopic Urinalysis Comment CULTURE INDICATED Activated Partial 43.3 SEC Thromboplast Time Microbiology Microbiology 03/07/17 Urine Culture - Preliminary, Resulted IMMATURE GROWTH - REINCUBATE Physical Exam General General Appearance: Well Developed, Well Nourished, No Acute Distress, Comfortable Eyes Eye Exam: Pupils Equal, Pupils Reactive Ears & Nose Ears & Nose Exam: Nasal Mucosa [place] Throat Throat Exam: Oral Mucosa [place] & Moist Neck Neck Exam: Neck Supple, Trachea Midline Pulmonary Resp Exam: No Distress, Decreased Bases Cardiology CV Exam: Regular Gastrointestinal/Abdomen GI Exam: Soft, Non-Tender, Bowel Sounds Present, Non-Distended Musculoskeletal MS Exam: Joints Intact Integumentary Skin Exam: Warm, Dry Extremeties Extremities Exam: No Edema, Pedal Pulses Palpable Neurologic Neuro Exam: Alert, Awake, Oriented, Speech Clear, Moving All Extremities, No Focal Deficits Psychiatric Psych Exam: Appropriate Responses VTE Prophylaxis VTE Prophylaxis Device: SCDs VTE Remarks Xarelto PUD Prophylasis PUD Prophylaxis: Protonix Assessment/Plan Problem List: (1) Pneumonia (2) Pulmonary embolism (3) Diaphoresis (4) Leukocytosis (5) Lactic acid acidosis (6) Diet-controlled diabetes mellitus Assessment/Plan Off Heparin, now on Xarelto appreciate hematology input,hypercoag work up in progress US negative for DVT continue abx WBC trending down follow cultures sputum pending continue home meds d/w pt need to be on Xarelto x 6 months, he understands Protein level is high,serum protein electrophoresis was requested and a manual white count differential continue with oxygen, sats 89-90 on RA walk test for tomorrow OOB to ambulate For DVT prophylaxis, continue Xarelto PPI for prophylaxis D/W RN D/W pt and D/W Dr. Crooks This pt. was seen by myself and Dr. Crooks, this note is written on his behalf. Problem Qualifiers (1) Pneumonia: Qualified Code: J18.9 - Pneumonia of both lower lobes due to infectious organism (2) Pulmonary embolism: Qualified Code: I26.99 - Other acute pulmonary embolism without acute cor pulmonale (3) Leukocytosis: Qualified Code: D72.829 - Leukocytosis, unspecified type Danielle Perez [facility] Mar 08, 2017 12:33
[2017-03-08 17:24] LABS: BICARBONATE 25.7 MEQ/L (21.0-32.0); POTASSIUM 3.6 MEQ/L (3.5-5.1)
[2017-03-08] MEDS: PRAVASTATIN SOD 40 MG TAB PO SCH (19:59)
[2017-03-08] MEDS: cefTRIAXone INJ 2,000 MG in SODIUM CHLORIDE 0.9% INJ 100 ML IV SCH (20:00)
[2017-03-08] MEDS: AZITHROMYCIN INJ 500 MG in SODIUM CHLOR 0.9% 250 ML INJ 250 ML IV SCH (20:00)
[2017-03-08 20:39] LABS: ALBUMIN SPE 3.68 GM/DL (3.50-5.00); ALPHA 1 GLOBULIN 0.29 GM/DL (0.11-0.29); ALPHA 2 GLOBULIN 0.88 GM/DL (0.22-1.00); BETA GLOBULINS (SPE) 0.84 GM/DL (0.53-1.03)
[2017-03-09] VITALS (17 sets, daily range): BP systolic 118–143; BP diastolic 74–86; PULSE 86–106; RESP 18–20; TEMP 97.6–99.3; O2SAT 94–96
[2017-03-09 06:48] LABS: HEMATOCRIT 38.8 % (39.0-51.0); MEAN CELL VOLUME 87.9 FL (80.0-100.0); MEAN CORPUSCULAR HEMOGLOBIN 29.9 PG (27.0-34.0); PLATELET COUNT 189 TH/MM3 (150-450); RED BLOOD COUNT 4.41 MIL/MM3 (4.50-5.90); RED CELL DISTRIBUTION WIDTH 14.1 % (11.6-17.2); REVIEW FLAG FINAL; WHITE BLOOD COUNT 12.3 TH/MM3 (4.0-11.0)
[2017-03-09 07:22] LABS: BICARBONATE 27.2 MEQ/L (21.0-32.0); POTASSIUM 4.1 MEQ/L (3.5-5.1)
[2017-03-09] MEDS: LISINOPRIL 20 MG TAB PO SCH (09:23)
[2017-03-09] MEDS: SERTRALINE HCL 50 MG TAB PO SCH (09:23)
[2017-03-09] MEDS: PANTOPRAZOLE SOD 20 MG DELAYED RELEASE TAB PO SCH (09:23)
[2017-03-09] MEDS: TAMSULOSIN HCL 0.4 MG CAP PO SCH (09:23)
[2017-03-09] MEDS: CHOLECALCIFEROL (VIT D3) 1000 UNIT TAB PO SCH (09:23)
[2017-03-09] MEDS: RIVAROXABAN 15 MG TAB PO SCH (09:29)
[2017-03-09] MEDS ORDERED: OXYGENDME NAS.CANULA (13:39)
[2017-03-09] MEDS ORDERED: XARE15TA PO (13:39)
--- NOTE | 2017-03-09 13:52 | PD.ONC.PN ---
Subjective Subjective Remarks Afebrile overnight Pt denies any bleeding since starting the Xarelto SOB "still there, but improved". Objective Data Date Time Temp Pulse Resp B/P Pulse Ox O2 Delivery O2 Flow Rate FiO2 03/09/17 12:00 88 03/09/17 12:00 97.6 90 20 143/81 95 03/09/17 11:00 2.00 03/09/17 11:00 90 03/09/17 10:00 86 03/09/17 09:00 92 03/09/17 08:00 99.3 98 18 126/76 94 03/09/17 08:00 106 03/09/17 07:00 92 03/09/17 06:00 93 03/09/17 05:00 92 03/09/17 04:00 98.8 93 18 118/75 96 03/09/17 04:00 89 03/09/17 03:00 92 03/09/17 02:00 92 03/09/17 01:00 90 03/09/17 00:00 92 03/09/17 00:00 95 18 141/86 96 03/08/17 23:00 90 03/08/17 22:00 90 03/08/17 21:00 100 03/08/17 20:00 97 03/08/17 20:00 98.5 93 18 147/80 93 03/08/17 19:00 84 03/08/17 18:00 90 03/08/17 17:12 97 Nasal Cannula 2.00 03/08/17 17:00 84 03/08/17 16:00 99.1 90 18 129/74 96 03/08/17 16:00 84 03/08/17 15:00 89 03/08/17 14:00 102 03/09/17 03/09/17 03/09/17 07:00 15:00 23:00 Intake Total 360 ml Output Total 1475 ml Balance -1115 ml Result Diagram: 03/09/1713 03/09/17612 Laboratory Results Laboratory Tests Test 03/08/17 03/09/17 16:46 06:13 Sodium Level 138 MEQ/L 139 MEQ/L Potassium Level 3.6 MEQ/L 4.1 MEQ/L Chloride Level 105 MEQ/L 104 MEQ/L Carbon Dioxide Level 25.7 MEQ/L 27.2 MEQ/L Anion Gap 7 MEQ/L 8 MEQ/L Blood Urea Nitrogen 13 MG/DL 14 MG/DL Creatinine 1.09 MG/DL 1.10 MG/DL Estimat Glomerular Filtration 67 ML/MIN 67 ML/MIN Rate Random Glucose 125 MG/DL 104 MG/DL Calcium Level 8.1 MG/DL 8.9 MG/DL White Blood Count 12.3 TH/MM3 Red Blood Count 4.41 MIL/MM3 Hemoglobin 13.2 GM/DL Hematocrit 38.8 % Mean Corpuscular Volume 87.9 FL Mean Corpuscular Hemoglobin 29.9 PG Mean Corpuscular Hemoglobin 34.0 % Concent Red Cell Distribution Width 14.1 % Platelet Count 189 TH/MM3 Mean Platelet Volume 8.2 FL Culture Results Microbiology Date/Time Procedure Status Source Growth 03/06/17 19:58 Aerobic Blood Culture - Preliminary Resulted Blood Peripheral NO GROWTH IN 3 DAYS 03/06/17 19:58 Anaerobic Blood Culture - Preliminary Resulted Blood Peripheral NO GROWTH IN 3 DAYS 03/06/17 20:05 Aerobic Blood Culture - Preliminary Resulted Blood Peripheral NO GROWTH IN 3 DAYS 03/06/17 20:05 Anaerobic Blood Culture - Preliminary Resulted Blood Peripheral NO GROWTH IN 3 DAYS 03/07/17 13:25 Urine Culture - Final Complete Urine Random Urine 50-100,000 CFU/ML MIXED GRAM POSITIVE... 03/08/17 12:00 Cancelled Sputum Expectorated Sputum Administered Medications Medications (Trade) Dose Ordered Sig/Dinesh Route PRN Reason Start Time Stop Time Status Last Admin Dose Admin Ceftriaxone Sodium 2000 mg/ Sodium Chloride 100 ml @ 200 mls/hr Q24H IV 03/07/17 20:00 03/08/17 20:00 Azithromycin/ Sodium Chloride (Zithromax Inj/ NS 250 ml Inj) 250 ml @ 250 mls/hr HS IV 03/07/17 21:00 03/08/17 20:00 Ondansetron HCl (Zofran Inj) 4 mg Q6H PRN IV NAUSEA 03/06/17 23:00 03/07/17 11:10 Morphine Sulfate (Morphine Inj) 4 mg Q3H PRN IV SEVERE PAIN/PAIN 6-10 03/07/17 01:30 03/08/17 22:38 Cholecalciferol (Vitamin D3) 1,000 units DAILY PO 03/07/17 09:00 03/09/17 09:23 Sertraline HCl (Zoloft) 50 mg DAILY PO 03/07/17 09:00 03/09/17 09:23 Lisinopril (Prinivil) 40 mg DAILY PO 03/07/17 09:15 03/09/17 09:23 Pantoprazole Sodium (Protonix) 20 mg DAILY PO 03/08/17 09:00 03/09/17 09:23 Pravastatin Sodium (Pravachol) 40 mg HS PO 03/07/17 21:00 03/08/17 19:59 Tamsulosin HCl (Flomax) 0.4 mg BID PO 03/07/17 21:00 03/09/17 09:23 Rivaroxaban (Xarelto) 15 mg BID PO 03/07/17 10:15 03/09/17 09:29 Objective Remarks GENERAL: Middle aged male, upright in bed in no distress. SKIN: Warm and dry. HEAD: Normocephalic. EYES: No injection or drainage. NECK: Supple, trachea midline CARDIOVASCULAR: +S1/S2. RESPIRATORY: Clear anteriorly. Breathing unlabored. GASTROINTESTINAL: Abdomen soft, non-tender, nondistended. EXTREMITIES: No cyanosis. No edema. NEUROLOGICAL: No obvious focal deficit. Awake, alert, and oriented x3. Assessment/Plan Problem List: (1) Pulmonary embolism Status: Acute Plan: 03/08: Pt doing well on Xarelto. No bleeding. Will plan to monitor periodic CBC and see him in the clinic as outpatient with plans to do hypercoagulable workup at that time. --CTA showed PE --no DVT ++family history Attending Statement still has pleuritic CP but improving. Continue xarelto Ok to d/c FU as outpt. Problem Qualifiers (1) Pulmonary embolism: Qualified Code: I26.99 - Other acute pulmonary embolism without acute cor pulmonale Jessenia Davis Mar 09, 2017 13:52 Aime Godinez MD Mar 09, 2017 17:12
[2017-03-09] MEDS ORDERED: MSIR15 PO (17:10)
--- NOTE | 2017-03-09 18:58 | HHI.PR ---
Subjective Interval History Alert, oriented, mild exertional dyspnea, mild pleuritic chest pain, wants to go home Review of Systems Constitutional Constitutional Remarks As above, 10 systems reviewed and otherwise negative Vitals/Results Intake & Output 03/08/17 03/08/17 03/09/17 15:00 23:00 07:00 Intake Total 600 ml 360 ml Output Total 1475 ml Balance 600 ml -1115 ml Intake Oral 600 ml 360 ml Output Urine Total 1475 ml # Voids 4 Vital Signs Vital Signs Date Time Temp Pulse Resp B/P Pulse Ox O2 Delivery O2 Flow Rate FiO2 03/09/17 16:00 98.9 89 20 120/74 94 03/09/17 16:00 90 03/09/17 15:00 89 03/09/17 14:00 86 03/09/17 13:00 90 03/09/17 12:00 88 03/09/17 12:00 97.6 90 20 143/81 95 03/09/17 11:00 2.00 03/09/17 11:00 90 03/09/17 10:00 86 03/09/17 09:00 92 03/09/17 08:00 99.3 98 18 126/76 94 03/09/17 08:00 106 03/09/17 07:00 92 03/09/17 06:00 93 03/09/17 05:00 92 03/09/17 04:00 98.8 93 18 118/75 96 03/09/17 04:00 89 03/09/17 03:00 92 03/09/17 02:00 92 03/09/17 01:00 90 03/09/17 00:00 92 03/09/17 00:00 95 18 141/86 96 03/08/17 23:00 90 03/08/17 22:00 90 03/08/17 21:00 100 03/08/17 20:00 97 03/08/17 20:00 98.5 93 18 147/80 93 03/08/17 19:00 84 CBC/BMP: 03/09/17 0613 03/09/17 0613 Lab Results Laboratory Tests Test 03/09/17 06:13 White Blood Count 12.3 TH/MM3 Red Blood Count 4.41 MIL/MM3 Hemoglobin 13.2 GM/DL Hematocrit 38.8 % Mean Corpuscular Volume 87.9 FL Mean Corpuscular Hemoglobin 29.9 PG Mean Corpuscular Hemoglobin 34.0 % Concent Red Cell Distribution Width 14.1 % Platelet Count 189 TH/MM3 Mean Platelet Volume 8.2 FL Sodium Level 139 MEQ/L Potassium Level 4.1 MEQ/L Chloride Level 104 MEQ/L Carbon Dioxide Level 27.2 MEQ/L Anion Gap 8 MEQ/L Blood Urea Nitrogen 14 MG/DL Creatinine 1.10 MG/DL Estimat Glomerular Filtration 67 ML/MIN Rate Random Glucose 104 MG/DL Calcium Level 8.9 MG/DL Physical Exam General General Appearance: Well Developed, Well Nourished, No Acute Distress, Comfortable Eyes Eye Exam: Pupils Equal, Pupils Reactive Ears & Nose Ears & Nose Exam: Nasal Mucosa [place] Throat Throat Exam: Oral Mucosa [place] & Moist Neck Neck Exam: Neck Supple, Trachea Midline Pulmonary Resp Exam: No Distress, Decreased Bases Cardiology CV Exam: Regular Gastrointestinal/Abdomen GI Exam: Soft, Non-Tender, Bowel Sounds Present, Non-Distended Musculoskeletal MS Exam: Joints Intact Integumentary Skin Exam: Warm, Dry Extremeties Extremities Exam: No Edema, Pedal Pulses Palpable Neurologic Neuro Exam: Alert, Awake, Oriented, Speech Clear, Moving All Extremities, No Focal Deficits Psychiatric Psych Exam: Appropriate Responses VTE Prophylaxis VTE Prophylaxis Device: SCDs PUD Prophylasis PUD Prophylaxis: Protonix Assessment/Plan Problem List: (1) Pneumonia (2) Pulmonary embolism (3) Diaphoresis (4) Leukocytosis (5) Lactic acid acidosis (6) Diet-controlled diabetes mellitus Assessment/Plan Assessment Acute pulmonary embolism, Strong family history of thromboembolism Right base consolidation, no clinical evidence of pneumonia Leukocytosis Diaphoresis, improved Slightly elevated protein with normal albumin, no evidence of monoclonal gammopathy Plan Discharge home Continue Xarelto at least 6 months Supplemental oxygen The patient was informed that he will need at least 6 months of anticoagulation hematology following as outpatient Discussed with patient Discussed with nurse 40 minutes spent Discussed Condition with: Patient Problem Qualifiers (1) Pneumonia: Qualified Code: J18.9 - Pneumonia of both lower lobes due to infectious organism (2) Pulmonary embolism: Qualified Code: I26.99 - Other acute pulmonary embolism without acute cor pulmonale (3) Leukocytosis: Qualified Code: D72.829 - Leukocytosis, unspecified type Greg Crooks MD Mar 09, 2017 18:58 (3) Leukocytosis: Qualified Code: D72.829 - Leukocytosis, unspecified type Greg Crooks MD Mar 09, 2017 18:58
== END 2017-03-09 18:00 | disposition home or self-care (01) | DRG 176 ==
LOC: NEPC 19:21 → NEDA 22:46 → HCIS 03-07 00:36
PROVIDERS: ADMIT Specialist; ATTEND Specialist
DX: I26.99 Other pulmonary embolism without acute cor pulmonale (principal); E87.2 Acidosis; R91.8 Other nonspecific abnormal finding of lung field; E78.5 Hyperlipidemia, unspecified; I10 Essential (primary) hypertension; F43.10 Post-traumatic stress disorder, unspecified; E11.9 Type 2 diabetes mellitus without complications; E78.00 Pure hypercholesterolemia, unspecified; K21.9 Gastro-esophageal reflux disease without esophagitis; R00.0 Tachycardia, unspecified; N40.0 Benign prostatic hyperplasia without lower urinary tract symptoms; R61 Generalized hyperhidrosis; Z87.891 Personal history of nicotine dependence; Z82.49 Family history of ischemic heart disease and other diseases of the circulatory system
CPT/HCPCS: 71010; 71275; 80048; 80053; 81001; 82550; 82552; 83605; 83735; 83880; 84165; 84484; 85025; 85027; 85610; 85652; 85730; 87040; 87086; 87205; 93005; 93970; 94620; 96365; 96367; 96375; J0456; J0696; J1644; J1885; J2270; J2405; J7030; J7040; J7050; Q9967

== ENCOUNTER → 2017-05-10 | Outpatient (CLI) | payer MEDICARE, BC, OTHER ==
[~2017-05-10] MED LIST: ASPI81TA81; LISI40TA PO; MSIR15 PO; OMEP20TA PO; OXYGENDME NAS.CANULA; SERT-132 PO; SIMV20TA PO; TAMS0.4C4 PO; VITA100064 PO; XARE15TA PO
--- NOTE | 2017-05-18 08:29 | RSPPFT ---
DATE OF PROCEDURE: 05/10/17 COMMENTS: VOLUMES DYNAMIC: FVC and FEV1 normal. STATIC: FRC, RV and TLC normal. FLOWS: FEV1% normal; FEF 25-75 mildly reduced. DIFFUSION: Normal. FLOW VOLUME LOOP: Terminal airflow obstruction. IMPRESSION: Very mild obstructive ventilator defect with terminal airflow obstruction and increased airways resistance. There is some improvement post-bronchodilator. Diffusion is normal.
== END ==
LOC: HRSP 10:46
PROVIDERS: ATTEND Internal Medicine
DX: J44.9 Chronic obstructive pulmonary disease, unspecified (principal)
CPT/HCPCS: 94060; 94620; 94726; 94729